=== PATIENT | female | born 1995 | race Native Hawaiian/Other Pacific Islander ===

== ENCOUNTER 2018-06-22 13:51 | Outpatient (CLI) | payer BC ==
[~2018-06-22] VITALS: Ht 162.6 cm; Wt 65.3 kg
[2018-06-22 14:34] LABS: PLATELET COUNT 244 K/uL (152-353)
[2018-06-22 14:48] LABS: POTASSIUM 4.9 mmol/L (3.6-5.2)
== END 2018-06-22 22:14 | disposition home or self-care (01) ==
LOC: INF 13:51
PROVIDERS: Internal Medicine
DX: E86.0 Dehydration (principal); R10.9 Unspecified abdominal pain
CPT/HCPCS: 80053; 82150; 83690; 85027; 96360; 96361; J2405

== ENCOUNTER 2019-12-22 09:57 | Outpatient (CLI) | payer OTHER | END 2019-12-22 18:59 | disposition home or self-care (01) | LOC: LAB 09:57 | DX: U07.1 COVID-19 (principal); R50.9 Fever, unspecified | CPT/HCPCS: 87635; G2023; U00003 ==